=== PATIENT | female | born 1990 | race Caucasian/White ===

== ENCOUNTER 2020-10-11 09:50 | Outpatient (RCR) | payer OTHER, SELFPAY | END 2021-01-09 23:59 | disposition home or self-care (01) | LOC: ANHLAB 09:50 | PROVIDERS: PCP Family Medicine; Visit Provider Obstetrics & Gynecology | DX: O02.1 Missed abortion (principal); Z3A.01 Less than 8 weeks gestation of pregnancy | CPT/HCPCS: 36415; 85461 ==

== ENCOUNTER 2021-09-20 21:39 | Inpatient (IN) | payer OTHER, SELFPAY ==
[2021-09-20] VITALS (38 sets, daily range): BP systolic 84–138; BP diastolic 53–107; PULSE 73–113; TEMP 36.5–36.6; O2SAT 85–100; BMI 30.7
--- OUTSIDE RECORDS SUMMARY | 2021-09-20 21:51 | XMS_ITS | Encounter Summary ---
:1990 Author Care Team Providers Name Role Phone Ramu Navarrete Primary Care Provider [phone] Reason for Visit OB visit Assessment and Plan 1. Routine care Discussion Note: None recorded.Patient educational handouts: No information available. Plan of Care Reminders Provider Appointments Return to Office on or around 09/24/2021 Tim Becerril CNM ? Ob Routine 09/25/2021 9:00AM Christine Fuentes MD ? Induction 09/26/2021 4:00PM Christine Fuentes MD Lab None recorded. ? ? Referral None recorded. ? ? Procedures None recorded. ? ? Surgeries None recorded. ? ? Imaging None recorded. ? ? Medications Name Start Date ? ? ? Medications Administered None recorded. Vitals Height Weight BMI Blood Pressure 5 ft 10 in 223 lbs 32 kg/m2 113/77 mm[Hg] Results Lab Results None recorded. Allergies Code Code System Name Reaction Severity Onset NKDA ? ? ? Problems Name Status Onset Date Source ? Active 03/18/2021 ? History of SARS-CoV-2 Active 06/07/2021 ? Procedures Date Name Performed by ? 08/21/2021 US, Obstetric, Follow-up [place] [address] [place] [address] (Work [address]) Vaccine List None recorded. Social History Tobacco Smoking Status Never Smoker What is the highest grade or level of school you
--- OUTSIDE RECORDS SUMMARY | 2021-09-20 21:51 | XMS_ITS | Encounter Summary ---
:1990 Author Care Team Providers Name Role Phone Ramu Navarrete Primary Care Provider [phone] Reason for Visit OB visit Assessment and [...] BMI Blood Pressure 5 ft 10 in 226 lbs 32.4 kg/m2 124/78 mm[Hg] Results Lab Results None recorded. Allergies Code Code System Name Reaction Severity Onset NKDA ? ? ? Problems Name Status Onset Date Source ? Active 03/18/2021 ? History of SARS-CoV-2 Active 06/07/2021 ? Procedures Date Name Performed by ? 08/21/2021 US, Obstetric, Follow-up [place] [address] [place] [address] (Work [address]) 09/11/2021 US, Obstetric, Follow-up [place] [address]
--- OUTSIDE RECORDS SUMMARY | 2021-09-20 21:51 | XMS_ITS | Encounter Summary ---
:1990 Author Care Team Providers Name Role Phone Ramu Navarrete Primary Care Provider [phone] Reason for Visit OB visit Assessment and [...] BMI Blood Pressure 5 ft 10 in 220 lbs 31.6 kg/m2 116/75 mm[Hg] Results Lab Results None recorded. Allergies Code Code System Name Reaction Severity Onset NKDA ? ? ? Problems Name Status Onset Date Source ? Active 03/18/2021 ? History of SARS-CoV-2 Active 06/07/2021 ? Procedures Date Name Performed by ? 07/24/2021 US, Obstetric, Follow-up [place] [address] [place] [address] (Work [address]) Vaccine List None recorded. Social History Tobacco Smoking Status Never Smoker What is the highest grade or level of school you
--- OUTSIDE RECORDS SUMMARY | 2021-09-20 21:51 | XMS_ITS | Encounter Summary ---
:1990 Author Care Team Providers Name Role Phone Ramu Navarrete Primary Care Provider [phone] Reason for Visit None recorded. Assessment and Plan 1. COVID-19 ? US, obstetric, follow-up Discussion Note: None recorded.Patient educational handouts: No information available. Plan of Care Reminders Provider Appointments Return to Office on or around Tracy Becerril CNM 09/24/2021 ? Ob Routine 09/25/2021 9:00AM Christine Fuentes MD ? Induction 09/26/2021 4:00PM Christine Fuentes MD Lab None recorded. ? ? Referral None recorded. ? ? Procedures None recorded. ? ? Surgeries None recorded. ? ? Imaging US, Obstetric, 09/11/2021 [place] Follow-up Medications Name Start Date ? ? ? Medications Administered None recorded. Vitals None recorded. Results Lab Results None recorded. Allergies Code Code System Name Reaction Severity Onset NKDA ? ? ? Problems Name Status Onset Date Source ? Active 03/18/2021 ? History of SARS-CoV-2 Active 06/07/2021 ? Procedures Date Name Performed by ? 08/21/2021 US, Obstetric, Follow-up [place] [address] [place] [address] (Work [address]) 09/11/2021 US, Obstetric, Follow-up [place] [address]
--- OUTSIDE RECORDS SUMMARY | 2021-09-20 21:51 | XMS_ITS | Encounter Summary ---
:1990 Author Care Team Providers Name Role Phone Ramu Navarrete Primary Care Provider [phone] Reason for Visit OB visit Assessment and [...] BMI Blood Pressure 5 ft 10 in 225 lbs 32.3 kg/m2 120/79 mm[Hg] Results Lab Results None recorded. Allergies Code Code System Name Reaction Severity Onset NKDA ? ? ? Problems Name Status Onset Date Source ? Active 03/18/2021 ? History of SARS-CoV-2 Active 06/07/2021 ? Procedures Date Name Performed by ? 08/21/2021 US, Obstetric, Follow-up [place] [address] [place] [address] (Work [address]) Vaccine List None recorded. Social History Tobacco Smoking Status Never Smoker What is the highest grade or level of school you
--- OUTSIDE RECORDS SUMMARY | 2021-09-20 21:51 | XMS_ITS ---
:1990 Author Care Team Providers Name Role Phone DAYTON SCHROEDER Primary Care Provider [phone] Allergies Code Code System Name Reaction Severity Status Onset NKDA ? Medications Name Status Start Date Stop Date ? ? Adderall Completed ? 02/11/2021 Adderall (10mg) Completed ? 02/12/2021 Adderall XR 10 mg capsule,extended release Completed ? 02/11/2021 TAKE 1 CAPSULE BY MOUTH ONCE DAILY IN THE MORNING fluconazole 150 mg tablet Completed ? 2020 TAKE 1 TABLET BY MOUTH 1 TIME ID NOW COVID-19 Test Kit Completed ? 022 TAKE TEST DIRECTED misoprostol 200 mcg tablet Completed ? 10/19 INSERT 4 TABLETS VAGINALLY DIRECTED Active ? Not available Problems Name Status Onset Date Source ? Active 03/18/2021 ? History of SARS-CoV-2 Active 06/07/2021 ? Procedures Date Name Performed by ? 09/24/2020 US, Obstetric, Transvaginal [place] [address] [place] [address] (Work [address]) 10/09/2020 , Obstetric, Transvaginal [place] [address] [place] [address] (Work [address]) 10/18/2020 US, Obstetric, Transvaginal [place] [address] [place] [address] (Work [address]) 03/18/2021 US, Obstetric, Nu
--- OUTSIDE RECORDS SUMMARY | 2021-09-20 21:51 | XMS_ITS | Encounter Summary ---
:1990 Author Care Team Providers Name Role Phone Ramu Navarrete Primary Care Provider [phone] Reason for Visit OB visit OB [id number] EDC 09/20/2021 LMP 12/14/2020 Assessment and Plan Assessment Note Patient is _30__weeks . Discuss ed plan. 1. Routine care Discussion Note: None recorded.Patient [...] BMI Blood Pressure 5 ft 10 in 213 lbs 30.6 kg/m2 114/71 mm[Hg] Results Lab Results None recorded. Allergies Code Code System Name Reaction Severity Onset NKDA ? ? ? Problems Name Status Onset Date Source ? Active 03/18/2021 ? History of SARS-CoV-2 Active 06/07/2021 ? Procedures Date Name Performed by ? 06/27/2021 US, Obstetric, Follow-up [place] [address] [place] [address]
--- OUTSIDE RECORDS SUMMARY | 2021-09-20 21:51 | XMS_ITS | Encounter Summary ---
:1990 Author Care Team Providers Name Role Phone Ramu Navarrete Primary Care Provider [phone] Reason for Visit None recorded. Assessment and [...] None recorded. ? ? Imaging US, Obstetric, 08/21/2021 [place] Follow-up Medications Name Start Date ? ? ? Medications Administered None recorded. Vitals None recorded. Results Lab Results None recorded. Allergies Code Code System Name Reaction Severity Onset NKDA ? ? ? Problems Name Status Onset Date Source ? Active 03/18/2021 ? History of SARS-CoV-2 Active 06/07/2021 ? Procedures Date Name Performed by ? 07/24/2021 US, Obstetric, Follow-up [place] [address] [place] [address] (Work [address]) 08/21/2021 US, Obstetric, Follow-up [place] [address]
--- OUTSIDE RECORDS SUMMARY | 2021-09-20 21:51 | XMS_ITS | Encounter Summary ---
:1990 Author Care Team Providers Name Role Phone Ramu Navarrete Primary Care Provider [phone] Reason for Visit None recorded. Assessment and [...] None recorded. ? ? Imaging US, Obstetric, 07/24/2021 [place] Follow-up Medications Name Start Date ? ? ? Medications Administered None recorded. Vitals None recorded. Results Lab Results None recorded. Allergies Code Code System Name Reaction Severity Onset NKDA ? ? ? Problems Name Status Onset Date Source ? Active 03/18/2021 ? History of SARS-CoV-2 Active 06/07/2021 ? Procedures Date Name Performed by ? 06/27/2021 US, Obstetric, Follow-up [place] [address] [place] [address] (Work [address]) 07/24/2021 US, Obstetric, Follow-up [place] [address]
--- OUTSIDE RECORDS SUMMARY | 2021-09-20 21:51 | XMS_ITS | Encounter Summary ---
:1990 Author Care Team Providers Name Role Phone Ramu Navarrete Primary Care Provider [phone] Reason for Visit OB visit Assessment and [...] ft 10 in 226 lbs 32.4 kg/m2 116/74 mm[Hg] Results Lab Results None recorded. Allergies Code Code System Name Reaction Severity Onset NKDA ? ? ? Problems Name Status Onset Date Source ? Active 03/18/2021 ? History of SARS-CoV-2 Active 06/07/2021 ? Procedures Date Name Performed by ? 08/21/2021 US, Obstetric, Follow-up [place] [address] [place] [address] ([address]) 09/11/2021 US, Obstetric, Follow-up [place] [address]
--- OUTSIDE RECORDS SUMMARY | 2021-09-20 21:51 | XMS_ITS | Encounter Summary ---
:1990 Author Care Team Providers Name Role Phone Ramu Navarrete Primary Care Provider [phone] Reason for Visit None recorded. Assessment and Plan 1. Routine care 2. History of SARS-CoV-2 Discussion Note: None recorded.Patient educational handouts: No [...] BMI Blood Pressure 5 ft 10 in 214 lbs 30.7 kg/m2 109/70 mm[Hg] Results Lab Results None recorded. Allergies Code Code System Name Reaction Severity Onset NKDA ? ? ? Problems Name Status Onset Date Source ? Active 03/18/2021 ? History of SARS-CoV-2 Active 06/07/2021 ? Procedures Date Name Performed by ? 06/27/2021 US, Obstetric, Follow-up [place] [address] [place] [address] ([address]) 07/24/2021 US, Obstetric, Follow-up [place]
--- OUTSIDE RECORDS SUMMARY | 2021-09-20 21:51 | XMS_ITS | Encounter Summary ---
:1990 Author Care Team Providers Name Role Phone Ramu Navarrete Primary Care Provider [phone] Reason for Visit OB visit Assessment and Plan 1. Routine care 2. [...] BMI Blood Pressure 5 ft 10 in 222 lbs 31.9 kg/m2 120/79 mm[Hg] Results Lab Results None recorded. Allergies Code Code System Name Reaction Severity Onset NKDA ? ? ? Problems Name Status Onset Date Source ? Active 03/18/2021 ? History of SARS-CoV-2 Active 06/07/2021 ? Procedures Date Name Performed by ? 07/24/2021 US, Obstetric, Follow-up [place] [address] [place] [address] ([address]) 08/21/2021 US, Obstetric, Follow-up [place]
--- OUTSIDE RECORDS SUMMARY | 2021-09-20 21:52 | XMS_ITS | Encounter Summary ---
:1990 Author Care Team Providers Name Role Phone Ramu Navarrete Primary Care Provider [phone] Reason for Visit None recorded. Assessment and [...] None recorded. ? ? Imaging US, Obstetric, 06/27/2021 [place] Follow-up Medications Name Start Date ? ? ? Medications Administered None recorded. Vitals None recorded. Results Lab Results None recorded. Allergies Code Code System Name Reaction Severity Onset NKDA ? ? ? Problems Name Status Onset Date Source ? Active 03/18/2021 ? History of SARS-CoV-2 Active 06/07/2021 ? Procedures Date Name Performed by ? 06/27/2021 US, Obstetric, Follow-up [place] [address] [place] [address] ([address]) Vaccine List None recorded. Social History Tobacco Smoking Status Never Smoker What is the highest grade or level of school you have comple shukri or [id number]
--- OUTSIDE RECORDS SUMMARY | 2021-09-20 21:52 | XMS_ITS | Encounter Summary ---
:1990 Author Care Team Providers Name Role Phone Ramu Navarrete Primary Care Provider [phone] Reason for Visit OB visit Assessment and Plan Assessment Note Patient is ___weeks . Discussed plan. 1. Routine care Discussion Note: None [...] BMI Blood Pressure 5 ft 10 in 212 lbs 30.4 kg/m2 122/74 mm[Hg] Results Lab Results None recorded. Allergies Code Code System Name Reaction Severity Onset NKDA ? ? ? Problems Name Status Onset Date Source ? Active 03/18/2021 ? History of SARS-CoV-2 Active 06/07/2021 ? Procedures Date Name Performed by ? 06/27/2021 US, Obstetric, Follow-up [place] [address] [place] [address] ([address]) Vaccine List None record
[2021-09-20] MEDS: LACTATED RINGERS 1,000 ML 125 ML IV CONT (21:58)
--- NOTE | 2021-09-20 22:01 | LDADM ---
This patient, Ailyn Meyers, was admitted to Labor/Delivery/Recovery 105 on 09/20/21 at 21:39. Plans for labor, pain management and were discussed with patient. Patient/family oriented to hospital policies and general routines including ID bracelet, bed and alarms, visiting hours, pain management, procedures, bathroom and other care routines, personal items, smoking policy, room service/diet and guest tray routines, security routines, and visiting hours. Patient/Family are encouraged to report perceived risks to care and to ask questions if they do not understand what they are told or what they should do. See OBIX for further documentation.
[2021-09-20 22:04] LABS: Basophils Percent Auto 0.3 % (0.2-1.2); Eosinophils Absolute Auto 0.1 K/mm3 (0-0.3); Eosinophils Percent Auto 0.4 % (0-4.4); Hematocrit 40.7 % (37.0-47.0); Hemoglobin 13.4 g/dL (12.0-15.0); Immature Granulocyte Absolute 0.07 K/mm3 (0.00-0.031); Immature Granulocyte Percent A 0.5 % (0-0.5); Lymphocytes Absolute Auto 2.53 K/mm3 (0.9-3.2); Lymphocytes Percent Auto 17.8 % (18.3-44.2); Mean Corpuscular HGB Conc 32.9 g/dl (32-36); Mean Corpuscular Hemoglobin 30.4 pg (26-34); Mean Corpuscular Volume 92.3 fl (80-100); Mean Platelet Volume 9.9 fl (7.4-10.4); Monocytes Percent Auto 6.8 % (2.6-8.5); Neutrophils Absolute Auto 10.6 K/mm3 (1.3-6.7); Neutrophils Percent Auto 74.2 % (45.5-73.1); Platelet Count Result 292 k/mm3 (150-375); Red Blood Count 4.41 M/mm3 (4.2-5.4); White Blood Count 14.2 K/mm3 (4.5-10.0)
--- NOTE | 2021-09-20 22:10 | WPDANESEPP ---
Anes - Eval Pre Procedure Procedure: LAbor epidural Date/Time: 09/20/21 22:10 Surgeon: Alfredo Preop Diagnosis: Abd pain with contractions Pre Op Diagnosis: Contractions Patient Data Age: 31 Gender: F Height: 1.8 m Weight: 100 kg Last Vital Signs Pulse 84 09/20/21 22:00 BP 126/80 09/20/21 22:00 Allergies Allergy/AdvReac Type Severity Reaction Status Date / Time No Known Allergies Allergy Verified 08/21/21 13:30 Home Medications Medication Instructions Recorded Confirmed Type ferrous sulfate 325 mg (65 mg 325 mg PO DAILY 08/21/21 08/21/21 History iron) tablet prenat.vits,ronan,zmq-gjyj-mahma 1 tablet PO DAILY 08/21/21 08/21/21 History Laboratory Tests 09/20/21 09/20/21 21:57 21:57 WBC 14.2 K/mm3 H K/mm3 (4.5-10.0) RBC 4.41 M/mm3 M/mm3 (4.2-5.4) Hgb 13.4 g/dL g/dL (12.0-15.0) Hct 40.7 % % (37.0-47.0) MCV 92.3 fl fl (80-100) MCH 30.4 pg pg (26-34) MCHC 32.9 g/dl g/dl (32-36) RDW 15.0 % H % (11.5-14.5) Plt Count 292 k/mm3 k/mm3 (150-375) MPV 9.9 fl fl (7.4-10.4) Immature Gran % (Auto) 0.5 % % (0-0.5) Neut % (Auto) 74.2 % H % (45.5-73.1) Lymph % (Auto) 17.8 % L % (18.3-44.2) [place] % (Auto) 6.8 % % (2.6-8.5) Eos % (Auto) 0.4 % % (0-4.4) Baso % (Auto) 0.3 % % (0.2-1.2) Lymph # (Auto) 2.53 K/mm3 K/mm3 (0.9-3.2) [place] # (Auto) 1.0 K/mm3 H K/mm3 (0.1-0.6) Eos # (Auto) 0.1 K/mm3 K/mm3 (0-0.3) Baso # (Auto) 0.0 K/mm3 K/mm3 (0.0-0.1) Abs Immat Gran (auto) 0.07 K/mm3 H K/mm3 (0.00-0.031) Absolute Neuts (auto) 10.6 K/mm3 H K/mm3 (1.3-6.7) Absolute Nucleated RBC 0.0 K/mm3 K/mm3 (0.0-0.012) Nucleated RBC % 0.0 % % (0.0-0.2) RPR Pending Patient hx anesthesia problems: none Family hx anesthesia problems: none Results Review: All pre-operative results and documents have been reviewed as part of the pre-operative evaluation. [facility] Past Medical History Medical History ADD (attention deficit disorder) ADHD Obesity and not yet delivered Family History Family History Other No pertinent family history Social History Social History Smoking status: Never smoker Second hand tobacco smoke exposure: No Substance use: never Spiritual care concerns: No Exam Day of Procedure 09/20/21 22:10 Patient weight: obese Airway: Mallampati scale class II
[2021-09-21] VITALS (99 sets, daily range): BP systolic 91–139; BP diastolic 34–87; PULSE 72–138; RESP 16–20; TEMP 36.4–37.1; O2SAT 96–100
[2021-09-21] MEDS: LACTATED RINGERS 1,000 ML 125 ML IV CONT (00:28)
[2021-09-21] MEDS: OXYTOCIN 30 UNITS/NS 500 ML 30 UNITS/500 ML BAG 999 UNITS IV CONT (03:18)
--- NOTE | 2021-09-21 03:39 | PM.OBPRVD ---
OB - Delivery Note Procedure Delivery date: 09/21/21 Procedure: Delivery monitor: External FHT and External Uterine Route of delivery: Laceration Description: Perineal - 2nd Degree and Labial (bilateral) Delivery repair: vicryl Quantitative Blood Loss (ml): 420 Anesthesia type: Epidural Disposition: Floor Narrative: With adequate expulsive efforts by the mother, the baby's head was delivered OA. The baby's anterior shoulder was delivered under the pubic symphysis without difficulty. The posterior shoulder and the rest of the baby delivered without difficulty. The infant was placed on the mothers chest and suctioned and stimulated. The cord was clamped and cut after 30 seconds. Mother and baby both stable. Baby Date of : 09/21/21 Time of : 03:14 Weeks of gestation at delivery: 40 Infant gender: Female Weight (pounds): 8 Weight (ounces): 9 presentation: vertex Placenta delivery description: Spontaneous Cord Vessel Description: 3 Vessels and Nuchal Cord score one minute: 8 score five minutes: 9
[2021-09-21] MEDS: OXYTOCIN 30 UNITS/NS 500 ML 30 UNITS/500 ML BAG 125 UNITS IV CONT (04:21)
[2021-09-21] MEDS: ACETAMINOPHEN 325 MG TABLET 650 MG PO (06:02)
[2021-09-21] MEDS: WITCH HAZEL 40 PADS 1 PAD TOPICAL (06:30)
[2021-09-21] MEDS: BENZOCAINE 20% AER SPR (*SP) 56 GM CAN 1 SPRAY TOPICAL (06:30)
[2021-09-21] MEDS: IBUPROFEN 600 MG TABLET PO ×3 (07:41→22:33)
--- NOTE | 2021-09-21 07:50 | PC.NURSE ---
Patient transferred to post room #281 via wheelchair. Support person present. Oriented to unit, room, information board, rooming in, admission packet and security measures. Patient verbalizes understanding.
[2021-09-21] MEDS: MULTIVIT/MIN/PREN/FOL AC/IRON TABLET 1 TAB PO (15:51)
[2021-09-22 01:00] VITALS: BP 95/60; PULSE 74; RESP 16; TEMP 36.3
[2021-09-22 05:13] LABS: Hematocrit 30.9 % (37.0-47.0); Hemoglobin 9.7 g/dL (12.0-15.0)
[2021-09-22] MEDS: POLYSACCHARIDE IRON COMPLEX 150 MG CAPSULE PO ×2 (08:23→17:19)
[2021-09-22] MEDS: BENZOCAINE 20% AER SPR (*SP) 56 GM CAN 1 SPRAY TOPICAL (08:23)
[2021-09-22] MEDS: MULTIVIT/MIN/PREN/FOL AC/IRON TABLET 1 TAB PO (08:23)
[2021-09-22] MEDS: WITCH HAZEL 40 PADS 1 PAD TOPICAL (08:23)
[2021-09-22] MEDS: DOCUSATE SODIUM 100 MG CAPSULE PO ×2 (08:23→17:19)
[2021-09-22 08:25] VITALS: BP 105/71; PULSE 74; RESP 18; TEMP 36.9; O2SAT 100
[2021-09-22] MEDS: IBUPROFEN 600 MG TABLET PO ×3 (08:25→23:23)
--- NOTE | 2021-09-22 09:44 | WPDANLDPN2 ---
Anes-Prog Note L&D Date/Time: 09/22/21 09:44 Neuro status: Neuro function grossly intact. Vital Signs: Last Vital Signs Temp 36.9 C 09/22/21 08:25 Pulse 74 09/22/21 08:25 Resp 18 09/22/21 08:25 BP 105/71 09/22/21 08:25 Pulse Ox 100 09/22/21 08:25 O2 Del Method Room Air 09/22/21 08:25 Pain score (VAS): .0 I/O: Intake & Output 09/21/21 09/22/21 09/22/21 23:59 07:59 15:59 Intake Total 240 340 Balance 240 340 Patient feedback: Patient satisfied with anesthetic care.
--- NOTE | 2021-09-22 10:47 | P.PNOB_ITS ---
OB - PN: Subj Subjective Date/time seen: 09/22/21 10:47 Patient comments: no complaints and pain well controlled baby status: doing well and nursing well [place] feeding status: exclusively breast feeding OB - PN: Obj Data Labs CBC & Chem 7: 09/22/21 04:20 Labs: Laboratory Results - last 24 hr 09/22/21 04:20 Hgb 9.7 L D Hct 30.9 L OB - PN A/P Plan day: 1 Plan: routine care Comments: DC home tomorrow. Time Spent With Patient Time: Total time spent is greater than 50% in coordination of care (as documented) at patient's floor/unit and/or counseling patient: Time with patient: less than 15 minutes Exam Narrative: NAD abdomen soft, nontender, fundus firm below the umbilicus Extremities nontender, 1+ edema
[2021-09-22 19:10] VITALS: BP 119/79; PULSE 83; RESP 16; TEMP 36.5
[2021-09-23] MEDS: DOCUSATE SODIUM 100 MG CAPSULE PO (07:39)
[2021-09-23] MEDS: IBUPROFEN 600 MG TABLET PO (07:39)
[2021-09-23] MEDS: MULTIVIT/MIN/PREN/FOL AC/IRON TABLET 1 TAB PO (07:40)
[2021-09-23] MEDS: POLYSACCHARIDE IRON COMPLEX 150 MG CAPSULE PO (07:40)
--- NOTE | 2021-09-23 07:46 | PM.OBPNVD ---
OB - PN: Subj Subjective Date/time seen: 09/23/21 07:46 Patient comments: no complaints and pain well controlled baby status: doing well [place] feeding status: pumping and bottle feeding OB - PN: Obj Data Labs CBC & Chem 7: 09/22/21 04:20 OB - PN A/P Plan day: 2 Plan: routine care and discharge home Time Spent With Patient Time: Total time spent is greater than 50% in coordination of care (as documented) at patient's floor/unit and/or counseling patient: Time with patient: less than 15 minutes Exam Narrative: NAD abdomen soft, nontender, fundus firm below the umbilicus Extremities nontender, 1+ edema
--- NOTE | 2021-09-23 07:48 | PM.DS ---
DS: Admitting Diagnosis Discharge Date 09/23/21 Admitting Diagnosis term IUP, labor DS: Discharge Diagnosis Discharge Diagnosis (1) , delivered: Code(s): O80 - Encounter for full-term uncomplicated delivery Status: Acute DS: Summary Hospital Course Hospital Course: Ailyn was admitted at 40w in labor. She proceeded to have an uncomplicated vaginal delivery and course. She was discharged home on day 2. Status at Discharge Functional status at discharge: independent ambulation Time Spent with Patient Time attestation: Total time spent providing and/or coordinating discharge services: Exam Narrative: NAD abdomen soft, appropriately tender Ext non tender, 1+ edema Discharge Plan Discharge Attending physician on discharge: Christine Fuentes Discharging Clinician: Christine Fuentes Anticipated Discharge Date/Time: 09/23/21 07:47 Patient Disposition: Home, Self-Care Activity: pelvic rest Diet: regular Patient Instructions: Antibiotic Form Stand Alone Forms: General Discharge Information Follow-up/Referrals: Christine Fuentes MD [Physician] - 4 Weeks Discharge Medications: Continued ferrous sulfate 325 mg (65 mg iron) Tablet 325 mg PO DAILY #2 Tablet 1 tablet PO DAILY Date of admission: 09/20/21 21:39 Primary Care Provider: RosalbaRamu Admitting Provider: Christine Fuentes Attending physician on admission: Christine Fuentes Condition: Stable
[2021-09-23 07:55] VITALS: BP 115/77; PULSE 79; RESP 16; TEMP 36.3; O2SAT 98
--- NOTE | 2021-09-23 09:22 | PC.NURSE ---
[id number] Introductions were made and Mother led the conversation with her experience and plan to feed her infant so far and her ability to continue with the plan of pumping to feed . Reminded parents to use good handwashing technique to prevent infection. Mother is feeding appropriately for growth of and understands stimulating infant to eat if needed. Infant has had appropriate feedings in the last 24 hours meets the outcomes for weight, output and jaundice at this time. Mother states she is confident to continue pumping to feed her at home human milk, when to call for assistance and denies any additional assistance or education at this time. Instructions given on cleaning, care, usage, that there should be no pain, pumping schedule for milk production, collection, and storage of human milk. Parents are encouraged to record pumping schedule on the feeding sheet. Patient was assessed for correct placement, flange size, to pump for comfort and nipple stretching/stimulation for adequate milk production every 3 hours (8 times in 24 hours). Reinforced understanding of milk production, transition of milk, signs of adequate intake, prevention/relief of engorgement, the different methods of stimulating infant to feed 2-3 hours after the start of the last feeding, community resources, medication information reviewed per [employer] and when to call a provider using the resource of the mom and baby guide/[facility] website. Mother voiced understanding of the education shared. Reported to the primary RN.
--- NOTE | 2021-09-23 11:56 | PC.NURSE ---
Patient viewed the discharge video Mother & Baby Care, The First Two Weeks . Patient was given the opportunity and encouraged to ask questions. Patient verbalized understanding of information shared and has been given the mother/baby guide for home reference.
[2021-09-23 14:40] LABS: Rapid Plasma Reagin Non-Reactive (NonReactive)
[2021-09-24 09:36] VITALS: BP 111/75; PULSE 102; RESP 20; TEMP 36.4; O2SAT 97
== END 2021-09-23 11:59 | disposition home or self-care (01) | DRG 807 ==
LOC: ANHLDR 21:54 → ANHOB2 09-21 07:54
PROVIDERS: Admitting Provider Obstetrics & Gynecology; PCP Family Medicine; Visit Provider Obstetrics & Gynecology
DX: O69.81X0 Labor and delivery complicated by cord around neck, without compression, not applicable or unspecified (principal); Z37.0 Single live birth; Z3A.40 40 weeks gestation of pregnancy; O70.1 Second degree perineal laceration during delivery; O36.8330 Maternal care for abnormalities of the fetal heart rate or rhythm, third trimester, not applicable or unspecified
CPT/HCPCS: 36415; 85014; 85018; 85025; 86592; 86850; 86900; 86901; A9270; J2590; J2795; J7120